=== PATIENT | male | born 1980 | race Two or more races ===

== ENCOUNTER 2020-05-26 17:43 | Emergency (ER) | payer MEDICAID ==
[~2020-05-26] VITALS: Ht 167.6 cm; Wt 70.5 kg
[2020-05-26 21:45] VITALS: BP 129/77
== END 2020-05-26 22:02 | disposition home or self-care (01) ==
LOC: EMS 17:47
DX: S61.412A Laceration without foreign body of left hand, initial encounter (principal); F17.200 Nicotine dependence, unspecified, uncomplicated; W26.0XXA Contact with knife, initial encounter; Y93.89 Activity, other specified; Y92.89 Other specified places as the place of occurrence of the external cause; Y99.8 Other external cause status
CPT/HCPCS: 12002; 99283

== ENCOUNTER 2021-10-27 20:24 | Emergency (ER) | payer MEDICAID ==
[~2021-10-27] VITALS: Ht 162.6 cm; Wt 65.9 kg
[2021-10-27 22:59] VITALS: BP 138/88
== END 2021-10-27 23:41 | disposition home or self-care (01) ==
LOC: EMS 20:26
DX: R04.0 Epistaxis (principal)
CPT/HCPCS: 99281; Z7502